=== PATIENT | male | born 1940 | race Caucasian/White ===

== ENCOUNTER → 2017-07-12 | Outpatient (CLI) | payer MEDICARE | END | disposition home or self-care (01) | LOC: SHCH 08:23 | PROVIDERS: ATTEND Internal Medicine Cardiovascular Disease | DX: I82.412 Acute embolism and thrombosis of left femoral vein (principal); Z79.01 Long term (current) use of anticoagulants; Z86.718 Personal history of other venous thrombosis and embolism | CPT/HCPCS: 93970 ==

== ENCOUNTER 2018-03-31 17:25 | Inpatient (IN) | payer MEDICARE ==
[~2018-03-31] VITALS: Ht 180.3 cm; Wt 86.0 kg
[2018-03-31 18:00] LABS: APPEARANCE,URINE CLEAR (CLEAR); BILIRUBIN,URINE NEGATIVE (NEGATIVE); COLOR,URINE YELLOW (YELLOW); GLUCOSE, URINE (UA) NEGATIVE (NEGATIVE); KETONES,URINE NEGATIVE (NEGATIVE); LEUKOCYTE ESTERASE ,URINE NEGATIVE (NEGATIVE); NITRATE,URINE NEGATIVE (NEGATIVE); OCCULT BLOOD,URINE NEGATIVE (NEGATIVE); PH,URINE 5.5 (5.0-8.0); PROTEIN,URINE NEGATIVE (NEGATIVE); UROBILINOGEN,URINE 0.2 mg/dL (0.2-1.0)
[2018-03-31] MEDS ORDERED: ONDANSETRON HCL 4 MG/2 ML VIAL ONE (18:20)
[2018-03-31] MEDS ORDERED: MORPHINE SULFATE 8 MG/ML VIAL ONE (18:21)
[2018-03-31 18:26] LABS: BASOPHILS % (AUTO) 0.3 % (0.0-5.0); EOSINOPHILS % (AUTO) 0.3 % (0.0-8.0); HEMATOCRIT 37.2 % (42-54); MEAN CORPUSCULAR HEMOGLOBIN 30.6 pg (27.0-33.0); MEAN CORPUSCULAR HGB CONC 33.5 g/dL (32.0-36.0); MEAN CORPUSCULAR VOLUME 91.4 fL (79-99); MONOCYTES % (AUTO) 9.8 % (3.0-13.0); NEUTROPHILS % (AUTO) 84.6 % (40.0-77.0); PLATELET COUNT (AUTO) 199 K/uL (130-400); RED BLOOD CELL COUNT(AUTO) 4.07 MIL/uL (4.50-6.20); RED CELL DISTRIBUTION WIDTH 13.7 % (11.0-15.5); WHITE BLOOD COUNT (AUTO) 14.9 K/uL (4.8-10.8)
[2018-03-31 18:39] LABS: CREATININE 1.6 mg/dL (0.5-1.5); POTASSIUM 4.3 mmol/L (3.5-5.1)
[2018-03-31 18:43] LABS: ALBUMIN 3.7 g/dL (3.5-5.0); BILIRUBIN,TOTAL 0.7 mg/dL (0.2-1.0); TOTAL PROTEIN, SERUM 7.7 g/dL (6.0-8.3)
[2018-03-31] MEDS ORDERED: AZITHROMYCIN 500MG+NS 250ML 250 ML IV ONE (19:56)
[2018-03-31] MEDS ORDERED: CEFTRIAXONE SODIUM 1 GM ONE (19:56)
[2018-03-31] MEDS ORDERED: SODIUM CHLORIDE 0.9% 50 ML IV ONE (19:56)
[2018-03-31] MEDS ORDERED: MORPHINE SULFATE 4 MG/1ML SYG ONE (22:40)
[2018-03-31] MEDS ORDERED: MORPHINE SULFATE 4 MG/1ML SYG IM ONE (22:45)
[2018-03-31 23:00] VITALS: BP 163/78
[2018-03-31] MEDS ORDERED: ATOR40TA69 PO (23:06)
[2018-03-31] MEDS ORDERED: LEVO100T12 PO (23:06)
[2018-03-31] MEDS ORDERED: APIX5TAB PO (23:06)
[2018-03-31] MEDS ORDERED: FLUO-126 PO (23:06)
[2018-03-31] MEDS ORDERED: ASPI-555 PO (23:06)
[2018-04-01] MEDS ORDERED: MORPHINE SULFATE 2 MG/ML 1ML SYG IV PRN
[2018-04-01] MEDS ORDERED: ONDANSETRON HCL 4 MG/2 ML VIAL IV PRN
[2018-04-01] MEDS ORDERED: KETOROLAC TROMETHAMINE 15MG/ML ONE (00:16)
[2018-04-01] MEDS: SODIUM CHLORIDE 0.9% 1000ML 1,000 ML IV SCH ×3 (01:23→20:00)
[2018-04-01] MEDS ORDERED: AMLO10TA6 PO (02:22)
[2018-04-01 04:00] VITALS: BP 148/70
[2018-04-01 06:20] LABS: BASOPHILS % (AUTO) 0.2 % (0.0-5.0); EOSINOPHILS % (AUTO) 0.1 % (0.0-8.0); HEMATOCRIT 32.6 % (42-54); LYMPHOCYTES % (AUTO) 6.7 % (21.0-51.0); MEAN CORPUSCULAR HEMOGLOBIN 31.8 pg (27.0-33.0); MEAN CORPUSCULAR HGB CONC 34.8 g/dL (32.0-36.0); MEAN CORPUSCULAR VOLUME 91.5 fL (79-99); MONOCYTES % (AUTO) 9.3 % (3.0-13.0); NEUTROPHILS % (AUTO) 83.7 % (40.0-77.0); PLATELET COUNT (AUTO) 177 K/uL (130-400); RED BLOOD CELL COUNT(AUTO) 3.57 MIL/uL (4.50-6.20); RED CELL DISTRIBUTION WIDTH 13.8 % (11.0-15.5); WHITE BLOOD COUNT (AUTO) 15.4 K/uL (4.8-10.8)
[2018-04-01] MEDS: KETOROLAC TROMETHAMINE 15MG/ML IV PRN ×3 (06:26→20:01)
[2018-04-01 07:12] LABS: BILIRUBIN,TOTAL 0.8 mg/dL (0.2-1.0); CREATININE 1.7 mg/dL (0.5-1.5); POTASSIUM 4.5 mmol/L (3.5-5.1); TOTAL PROTEIN, SERUM 6.6 g/dL (6.0-8.3)
[2018-04-01 07:31] VITALS: BP 127/62
[2018-04-01] MEDS ORDERED: ENOXAPARIN SODIUM 30 MG/0.3 ML SQ SCH (09:00)
[2018-04-01] MEDS: PANTOPRAZOLE SODIUM 40 MG TABLET.DR PO SCH (10:13)
[2018-04-01] MEDS: ACETAMINOPHEN 325 MG TAB PO PRN (10:15)
[2018-04-01 11:00] VITALS: BP 142/67
[2018-04-01 16:00] VITALS: BP 132/61
[2018-04-01 20:00] VITALS: BP 164/72
[2018-04-01] MEDS: APIXABAN 5 MG TABLET PO SCH (20:03)
[2018-04-01] MEDS ORDERED: MORPHINE SULFATE 5 MG/ML VIAL ONE (21:28)
[2018-04-01] MEDS: AZITHROMYCIN 500MG+NS 250ML 250 ML IV SCH ×2 (23:33)
[2018-04-01] MEDS: CEFTRIAXONE SODIUM 1 GM IV SCH ×2 (23:33)
[2018-04-02] VITALS (7 sets, daily range): BP systolic 119–156; BP diastolic 58–67
[2018-04-02] MEDS: SODIUM CHLORIDE 0.9% 1000ML 1,000 ML IV SCH ×3 (04:10→18:58)
[2018-04-02] MEDS: KETOROLAC TROMETHAMINE 15MG/ML IV PRN ×4 (04:30→21:57)
[2018-04-02 04:31] LABS: BASOPHILS % (AUTO) 0.2 % (0.0-5.0); EOSINOPHILS % (AUTO) 1.4 % (0.0-8.0); HEMATOCRIT 35.1 % (42-54); LYMPHOCYTES % (AUTO) 7.9 % (21.0-51.0); MEAN CORPUSCULAR HEMOGLOBIN 30.7 pg (27.0-33.0); MEAN CORPUSCULAR HGB CONC 33.6 g/dL (32.0-36.0); MEAN CORPUSCULAR VOLUME 91.6 fL (79-99); MONOCYTES % (AUTO) 9.6 % (3.0-13.0); NEUTROPHILS % (AUTO) 80.9 % (40.0-77.0); PLATELET COUNT (AUTO) 171 K/uL (130-400); RED BLOOD CELL COUNT(AUTO) 3.83 MIL/uL (4.50-6.20); RED CELL DISTRIBUTION WIDTH 13.8 % (11.0-15.5); WHITE BLOOD COUNT (AUTO) 12.1 K/uL (4.8-10.8)
[2018-04-02 04:46] LABS: CREATININE 1.5 mg/dL (0.5-1.5); POTASSIUM 4.5 mmol/L (3.5-5.1)
[2018-04-02] MEDS ORDERED: MORPHINE SULFATE 8 MG/ML VIAL ONE (06:13)
[2018-04-02] MEDS: APIXABAN 5 MG TABLET PO SCH ×2 (09:00→21:57)
[2018-04-02] MEDS: LEVOTHYROXINE 100 MCG TABLET PO SCH (09:00)
[2018-04-02] MEDS: ATORVASTATIN CALCIUM 40 MG TABLET PO SCH (11:03)
[2018-04-02] MEDS: FLUOXETINE HCL 20 MG CAPSULE PO SCH (11:03)
[2018-04-02] MEDS: AMLODIPINE BESYLATE 5 MG TAB PO SCH (11:03)
[2018-04-02] MEDS: ASPIRIN 81MG TAB.CHEW PO SCH (11:03)
[2018-04-02] MEDS: PANTOPRAZOLE SODIUM 40 MG TABLET.DR PO SCH (11:03)
[2018-04-03] MEDS: AZITHROMYCIN 500MG+NS 250ML 250 ML IV SCH ×2 (00:53→23:42)
[2018-04-03] MEDS: CEFTRIAXONE SODIUM 1 GM IV SCH ×2 (00:53→23:42)
[2018-04-03] MEDS: SODIUM CHLORIDE 0.9% 1000ML 1,000 ML IV SCH ×3 (02:00→22:00)
[2018-04-03 03:25] VITALS: BP 128/60
[2018-04-03 04:31] LABS: BASOPHILS % (AUTO) 0.2 % (0.0-5.0); EOSINOPHILS % (AUTO) 3.7 % (0.0-8.0); HEMATOCRIT 31.6 % (42-54); LYMPHOCYTES % (AUTO) 9.4 % (21.0-51.0); MEAN CORPUSCULAR HEMOGLOBIN 31.2 pg (27.0-33.0); MEAN CORPUSCULAR HGB CONC 34.1 g/dL (32.0-36.0); MEAN CORPUSCULAR VOLUME 91.6 fL (79-99); NEUTROPHILS % (AUTO) 74.7 % (40.0-77.0); PLATELET COUNT (AUTO) 179 K/uL (130-400); RED BLOOD CELL COUNT(AUTO) 3.45 MIL/uL (4.50-6.20); RED CELL DISTRIBUTION WIDTH 13.3 % (11.0-15.5); WHITE BLOOD COUNT (AUTO) 9.2 K/uL (4.8-10.8)
[2018-04-03 04:39] LABS: CREATININE 1.4 mg/dL (0.5-1.5); POTASSIUM 4.1 mmol/L (3.5-5.1)
[2018-04-03 07:42] VITALS: BP 132/60
[2018-04-03] MEDS ORDERED: IOHEXOL-350 75 ML VIAL IV ONE ×2 (08:07→14:49)
[2018-04-03] MEDS: KETOROLAC TROMETHAMINE 15MG/ML IV PRN ×2 (08:19→20:20)
[2018-04-03] MEDS ORDERED: MORPHINE SULFATE 5 MG/ML VIAL ONE ×2 (08:41→15:12)
[2018-04-03] MEDS: MORPHINE SULFATE 4 MG/1ML SYG IV PRN ×2 (08:58→15:15)
[2018-04-03] MEDS: AMLODIPINE BESYLATE 5 MG TAB PO SCH (09:00)
[2018-04-03] MEDS: APIXABAN 5 MG TABLET PO SCH ×2 (09:00→20:20)
[2018-04-03] MEDS: ATORVASTATIN CALCIUM 40 MG TABLET PO SCH (09:00)
[2018-04-03] MEDS: FLUOXETINE HCL 20 MG CAPSULE PO SCH (09:00)
[2018-04-03] MEDS: ASPIRIN 81MG TAB.CHEW PO SCH (09:00)
[2018-04-03] MEDS: LEVOTHYROXINE 100 MCG TABLET PO SCH (09:00)
[2018-04-03] MEDS ORDERED: DIATR MEGLU/DIATRIZOATE SODIUM 30 ML BOTTLE ONE (11:22)
[2018-04-03 11:41] VITALS: BP 129/64
[2018-04-03] MEDS: PANTOPRAZOLE SODIUM 40 MG TABLET.DR PO SCH (13:37)
[2018-04-03 16:00] VITALS: BP 134/64
[2018-04-03 20:04] VITALS: BP 154/61
[2018-04-04 00:04] VITALS: BP 117/54
[2018-04-04 04:04] VITALS: BP 123/63
[2018-04-04 04:31] LABS: BASOPHILS % (AUTO) 0.6 % (0.0-5.0); EOSINOPHILS % (AUTO) 6.1 % (0.0-8.0); HEMATOCRIT 29.2 % (42-54); LYMPHOCYTES % (AUTO) 10.7 % (21.0-51.0); MEAN CORPUSCULAR HEMOGLOBIN 31.6 pg (27.0-33.0); MEAN CORPUSCULAR HGB CONC 34.7 g/dL (32.0-36.0); MEAN CORPUSCULAR VOLUME 91.1 fL (79-99); MONOCYTES % (AUTO) 15.5 % (3.0-13.0); NEUTROPHILS % (AUTO) 67.1 % (40.0-77.0); PLATELET COUNT (AUTO) 209 K/uL (130-400); RED CELL DISTRIBUTION WIDTH 13.4 % (11.0-15.5); WHITE BLOOD COUNT (AUTO) 8.2 K/uL (4.8-10.8)
[2018-04-04 04:37] LABS: CREATININE 1.7 mg/dL (0.5-1.5)
[2018-04-04 08:00] VITALS: BP 144/61
[2018-04-04] MEDS: KETOROLAC TROMETHAMINE 15MG/ML IV PRN ×4 (08:45→23:31)
[2018-04-04] MEDS: ATORVASTATIN CALCIUM 40 MG TABLET PO SCH (08:50)
[2018-04-04] MEDS: FLUOXETINE HCL 20 MG CAPSULE PO SCH (08:50)
[2018-04-04] MEDS: AMLODIPINE BESYLATE 5 MG TAB PO SCH (08:50)
[2018-04-04] MEDS: APIXABAN 5 MG TABLET PO SCH ×2 (08:50→20:51)
[2018-04-04] MEDS: LEVOTHYROXINE 100 MCG TABLET PO SCH (08:50)
[2018-04-04] MEDS: PANTOPRAZOLE SODIUM 40 MG TABLET.DR PO SCH (08:50)
[2018-04-04] MEDS: ASPIRIN 81MG TAB.CHEW PO SCH (08:50)
[2018-04-04] MEDS: SODIUM CHLORIDE 0.9% 1000ML 1,000 ML IV SCH ×2 (08:51→18:00)
[2018-04-04 11:00] VITALS: BP 144/63
[2018-04-04 16:00] VITALS: BP 151/79
[2018-04-04] MEDS: MORPHINE SULFATE 4 MG/1ML SYG IV PRN (17:05)
[2018-04-04] MEDS: CEFEPIME HCL 1 GM VIAL IVP SCH ×2 (17:48→23:48)
[2018-04-04 19:25] VITALS: BP 154/71
[2018-04-04] MEDS: DOXYCYCLINE HYCLATE 100 MG TABLET PO SCH (20:51)
[2018-04-05] VITALS (7 sets, daily range): BP systolic 151–167; BP diastolic 66–80
[2018-04-05] MEDS: SODIUM CHLORIDE 0.9% 1000ML 1,000 ML IV SCH ×3 (04:45→17:49)
[2018-04-05 04:56] LABS: BASOPHILS % (AUTO) 0.8 % (0.0-5.0); EOSINOPHILS % (AUTO) 5.8 % (0.0-8.0); HEMATOCRIT 32.8 % (42-54); MEAN CORPUSCULAR HEMOGLOBIN 31.3 pg (27.0-33.0); MONOCYTES % (AUTO) 12.7 % (3.0-13.0); NEUTROPHILS % (AUTO) 68.7 % (40.0-77.0); PLATELET COUNT (AUTO) 211 K/uL (130-400); RED BLOOD CELL COUNT(AUTO) 3.57 MIL/uL (4.50-6.20); RED CELL DISTRIBUTION WIDTH 13.4 % (11.0-15.5); WHITE BLOOD COUNT (AUTO) 8.2 K/uL (4.8-10.8)
[2018-04-05 04:57] LABS: ABG HCO3 17.7 mmol/L (21.0-28.0); ABG OXYGEN SATURATION 92.5 % (95.0-99.0); ABG PCO2 27 mmHg (35-48)
[2018-04-05 05:11] LABS: INR 1.02 (0.85-1.15); PARTIAL THROMBOPLASTIN TIME 37.3 SEC (26.3-35.5); PROTHROMBIN TIME 10.7 SEC (9.6-11.6)
[2018-04-05 05:12] LABS: CREATININE 1.6 mg/dL (0.5-1.5); PHOSPHORUS 4.6 mg/dL (2.5-4.9)
[2018-04-05 05:30] LABS: CRP QUANTITATIVE 242.3 mg/L (0.00-9.0)
[2018-04-05] MEDS ORDERED: HYDROCORTISONE 1% 28.35 GM CREAM TP PRN (06:30)
[2018-04-05] MEDS: LEVOTHYROXINE 100 MCG TABLET PO SCH ×2 (08:46→09:00)
[2018-04-05] MEDS: ATORVASTATIN CALCIUM 40 MG TABLET PO SCH ×2 (08:46→09:00)
[2018-04-05] MEDS: DOXYCYCLINE HYCLATE 100 MG TABLET PO SCH ×3 (08:46→21:02)
[2018-04-05] MEDS: CEFEPIME HCL 1 GM VIAL IVP SCH ×3 (08:46→23:55)
[2018-04-05] MEDS: FLUOXETINE HCL 20 MG CAPSULE PO SCH ×2 (08:46→09:00)
[2018-04-05] MEDS: PANTOPRAZOLE SODIUM 40 MG TABLET.DR PO SCH ×2 (08:47→09:00)
[2018-04-05] MEDS: APIXABAN 5 MG TABLET PO SCH ×2 (08:47→09:00)
[2018-04-05] MEDS: AMLODIPINE BESYLATE 5 MG TAB PO SCH ×2 (08:47→09:00)
[2018-04-05] MEDS: ASPIRIN 81MG TAB.CHEW PO SCH ×2 (08:47→08:56)
[2018-04-05] MEDS: MORPHINE SULFATE 4 MG/1ML SYG IV PRN (15:43)
[2018-04-05] MEDS: KETOROLAC TROMETHAMINE 15MG/ML IV PRN (18:48)
[2018-04-06 03:35] VITALS: BP 153/73
[2018-04-06 05:05] LABS: BASOPHILS % (AUTO) 0.4 % (0.0-5.0); HEMATOCRIT 29.5 % (42-54); LYMPHOCYTES % (AUTO) 8.5 % (21.0-51.0); MEAN CORPUSCULAR HEMOGLOBIN 30.5 pg (27.0-33.0); MEAN CORPUSCULAR HGB CONC 33.4 g/dL (32.0-36.0); MEAN CORPUSCULAR VOLUME 91.4 fL (79-99); MONOCYTES % (AUTO) 15.6 % (3.0-13.0); NEUTROPHILS % (AUTO) 70.5 % (40.0-77.0); NUCLEATED RED BLOOD CELLS 0.1 % (0.0-0.19); PLATELET COUNT (AUTO) 205 K/uL (130-400); RED BLOOD CELL COUNT(AUTO) 3.22 MIL/uL (4.50-6.20); RED CELL DISTRIBUTION WIDTH 13.7 % (11.0-15.5); WHITE BLOOD COUNT (AUTO) 8.5 K/uL (4.8-10.8)
[2018-04-06 05:20] LABS: BILIRUBIN,TOTAL 0.6 mg/dL (0.2-1.0); CREATININE 1.4 mg/dL (0.5-1.5); MAGNESIUM 1.9 mg/dL (1.80-2.40); POTASSIUM 4.4 mmol/L (3.5-5.1); TOTAL PROTEIN, SERUM 6.1 g/dL (6.0-8.3)
[2018-04-06 05:23] LABS: INR 1.05 (0.85-1.15); PARTIAL THROMBOPLASTIN TIME 35.9 SEC (26.3-35.5)
[2018-04-06] MEDS ORDERED: HYDROCORTISONE 1% 28.35 GM CREAM TP PRN (06:45)
[2018-04-06 07:56] VITALS: BP 159/71
[2018-04-06] MEDS ORDERED: KETOROLAC TROMETHAMINE 15MG/ML ONE (08:49)
[2018-04-06] MEDS: ATORVASTATIN CALCIUM 40 MG TABLET PO SCH (09:00)
[2018-04-06] MEDS: AMLODIPINE BESYLATE 5 MG TAB PO SCH (09:00)
[2018-04-06] MEDS: FLUOXETINE HCL 20 MG CAPSULE PO SCH (09:00)
[2018-04-06] MEDS: LEVOTHYROXINE 100 MCG TABLET PO SCH (09:00)
[2018-04-06] MEDS: ASPIRIN 81MG TAB.CHEW PO SCH (09:00)
[2018-04-06] MEDS: DOXYCYCLINE HYCLATE 100 MG TABLET PO SCH ×2 (09:01→19:52)
[2018-04-06] MEDS: PANTOPRAZOLE SODIUM 40 MG TABLET.DR PO SCH (09:01)
[2018-04-06] MEDS: CEFEPIME HCL 1 GM VIAL IVP SCH ×3 (09:01→23:52)
[2018-04-06] MEDS: KETOROLAC TROMETHAMINE 15MG/ML IV PRN ×3 (09:02→23:47)
[2018-04-06 11:35] VITALS: BP 134/74
[2018-04-06] MEDS ORDERED: LIDOCAINE HCL MPF 1% 5ML VIAL ONE ×2 (14:12→14:18)
[2018-04-06] MEDS: MORPHINE SULFATE 4 MG/1ML SYG IV PRN (14:53)
[2018-04-06 16:25] VITALS: BP 157/78
[2018-04-06 17:53] LABS: TRIGLYCERIDES,BODY FLUID 56 mg/dL
[2018-04-06 17:55] LABS: CHOLESTEROL,BODY FLUID 63 mg/dL
[2018-04-06 19:48] LABS: APPEARANCE BODY FLUID SLIGHTLY CLOUDY (CLEAR); COLOR,BODY FLUID DARK YELLOW (LT YELLOW); SPECIMENTYPE,BODY FLUID PLEURAL; TOTAL VOLUME,BODY FLUID 61 mL
[2018-04-06 19:49] LABS: BODY FLUID RBC 3827 /cu. mm.; BODY FLUID WBC 1517 /cu. mm.
[2018-04-06] MEDS: APIXABAN 5 MG TABLET PO SCH (19:52)
[2018-04-06 19:56] LABS: BF LYMPHOCYTE 8 %; BF MONOCYTE 1 %
[2018-04-06 19:58] VITALS: BP 139/88
[2018-04-07] VITALS (7 sets, daily range): BP systolic 136–156; BP diastolic 57–77
[2018-04-07 04:47] LABS: BASOPHILS % (AUTO) 0.3 % (0.0-5.0); EOSINOPHILS % (AUTO) 6.6 % (0.0-8.0); HEMATOCRIT 25.6 % (42-54); LYMPHOCYTES % (AUTO) 9.9 % (21.0-51.0); MEAN CORPUSCULAR HEMOGLOBIN 31.1 pg (27.0-33.0); MEAN CORPUSCULAR VOLUME 91.7 fL (79-99); MONOCYTES % (AUTO) 14.3 % (3.0-13.0); NEUTROPHILS % (AUTO) 68.9 % (40.0-77.0); PLATELET COUNT (AUTO) 231 K/uL (130-400); RED CELL DISTRIBUTION WIDTH 13.8 % (11.0-15.5); WHITE BLOOD COUNT (AUTO) 8.1 K/uL (4.8-10.8)
[2018-04-07 05:07] LABS: CREATININE 1.6 mg/dL (0.5-1.5); POTASSIUM 4.2 mmol/L (3.5-5.1)
[2018-04-07] MEDS: AMLODIPINE BESYLATE 5 MG TAB PO SCH (08:49)
[2018-04-07] MEDS: CEFEPIME HCL 1 GM VIAL IVP SCH ×2 (08:49→15:38)
[2018-04-07] MEDS: ATORVASTATIN CALCIUM 40 MG TABLET PO SCH (08:49)
[2018-04-07] MEDS: APIXABAN 5 MG TABLET PO SCH ×2 (08:49→20:28)
[2018-04-07] MEDS: PANTOPRAZOLE SODIUM 40 MG TABLET.DR PO SCH (08:49)
[2018-04-07] MEDS: LEVOTHYROXINE 100 MCG TABLET PO SCH (08:50)
[2018-04-07] MEDS: ASPIRIN 81MG TAB.CHEW PO SCH (08:50)
[2018-04-07] MEDS: FLUOXETINE HCL 20 MG CAPSULE PO SCH (08:50)
[2018-04-07] MEDS: DOXYCYCLINE HYCLATE 100 MG TABLET PO SCH ×2 (08:50→20:28)
[2018-04-07] MEDS: ACETAMINOPHEN 325 MG TAB PO PRN (15:38)
[2018-04-07] MEDS: KETOROLAC TROMETHAMINE 15MG/ML IV PRN (20:29)
[2018-04-08] MEDS: CEFEPIME HCL 1 GM VIAL IVP SCH ×3 (00:09→16:14)
[2018-04-08 04:00] VITALS: BP 139/71
[2018-04-08 05:05] LABS: BASOPHILS % (AUTO) 0.4 % (0.0-5.0); EOSINOPHILS % (AUTO) 6.9 % (0.0-8.0); HEMATOCRIT 25.7 % (42-54); LYMPHOCYTES % (AUTO) 12.1 % (21.0-51.0); MEAN CORPUSCULAR HGB CONC 33.8 g/dL (32.0-36.0); MEAN CORPUSCULAR VOLUME 91.7 fL (79-99); MONOCYTES % (AUTO) 12.5 % (3.0-13.0); NEUTROPHILS % (AUTO) 68.1 % (40.0-77.0); PLATELET COUNT (AUTO) 217 K/uL (130-400); RED BLOOD CELL COUNT(AUTO) 2.81 MIL/uL (4.50-6.20); RED CELL DISTRIBUTION WIDTH 13.7 % (11.0-15.5); WHITE BLOOD COUNT (AUTO) 6.2 K/uL (4.8-10.8)
[2018-04-08 05:16] LABS: CREATININE 1.5 mg/dL (0.5-1.5); POTASSIUM 4.4 mmol/L (3.5-5.1)
[2018-04-08 08:10] VITALS: BP 145/79
[2018-04-08] MEDS: PANTOPRAZOLE SODIUM 40 MG TABLET.DR PO SCH (09:00)
[2018-04-08] MEDS: ATORVASTATIN CALCIUM 40 MG TABLET PO SCH (09:41)
[2018-04-08] MEDS: DOXYCYCLINE HYCLATE 100 MG TABLET PO SCH ×2 (09:41→20:37)
[2018-04-08] MEDS: ASPIRIN 81MG TAB.CHEW PO SCH (09:41)
[2018-04-08] MEDS: FLUOXETINE HCL 20 MG CAPSULE PO SCH (09:41)
[2018-04-08] MEDS: APIXABAN 5 MG TABLET PO SCH ×2 (09:41→20:37)
[2018-04-08] MEDS: AMLODIPINE BESYLATE 5 MG TAB PO SCH (09:42)
[2018-04-08] MEDS: LEVOTHYROXINE 100 MCG TABLET PO SCH (09:42)
[2018-04-08 11:32] VITALS: BP 142/64
[2018-04-08 16:38] VITALS: BP 161/72
[2018-04-08 19:58] VITALS: BP 153/65
[2018-04-08] MEDS: METOPROLOL TARTRATE 25 MG TAB PO SCH (20:37)
[2018-04-08 23:39] VITALS: BP 137/63
[2018-04-09] MEDS: CEFEPIME HCL 1 GM VIAL IVP SCH ×3 (01:57→16:27)
[2018-04-09 04:00] VITALS: BP 130/58
[2018-04-09 07:00] VITALS: BP 131/67
[2018-04-09] MEDS: PANTOPRAZOLE SODIUM 40 MG TABLET.DR PO SCH (09:00)
[2018-04-09] MEDS: DOXYCYCLINE HYCLATE 100 MG TABLET PO SCH ×2 (09:01→22:15)
[2018-04-09] MEDS: ASPIRIN 81MG TAB.CHEW PO SCH (09:01)
[2018-04-09] MEDS: AMLODIPINE BESYLATE 5 MG TAB PO SCH (09:01)
[2018-04-09] MEDS: FLUOXETINE HCL 20 MG CAPSULE PO SCH (09:01)
[2018-04-09] MEDS: METOPROLOL TARTRATE 25 MG TAB PO SCH ×2 (09:01→22:16)
[2018-04-09] MEDS: LEVOTHYROXINE 100 MCG TABLET PO SCH (09:02)
[2018-04-09] MEDS: ATORVASTATIN CALCIUM 40 MG TABLET PO SCH (09:11)
[2018-04-09] MEDS: APIXABAN 5 MG TABLET PO SCH ×2 (09:11→22:16)
[2018-04-09 11:52] VITALS: BP 116/58
[2018-04-09 16:00] VITALS: BP 152/67
[2018-04-09 19:20] VITALS: BP 149/66
[2018-04-09 23:30] VITALS: BP 136/65
[2018-04-10] MEDS: CEFEPIME HCL 1 GM VIAL IVP SCH ×4 (00:30→23:56)
[2018-04-10 03:20] VITALS: BP 128/54
[2018-04-10 04:03] LABS: BASOPHILS % (AUTO) 0.4 % (0.0-5.0); EOSINOPHILS % (AUTO) 6.7 % (0.0-8.0); HEMATOCRIT 25.6 % (42-54); LYMPHOCYTES % (AUTO) 11.7 % (21.0-51.0); MEAN CORPUSCULAR HEMOGLOBIN 30.3 pg (27.0-33.0); MEAN CORPUSCULAR HGB CONC 33.3 g/dL (32.0-36.0); MEAN CORPUSCULAR VOLUME 91.2 fL (79-99); MONOCYTES % (AUTO) 12.1 % (3.0-13.0); NEUTROPHILS % (AUTO) 69.1 % (40.0-77.0); PLATELET COUNT (AUTO) 263 K/uL (130-400); RED BLOOD CELL COUNT(AUTO) 2.81 MIL/uL (4.50-6.20); RED CELL DISTRIBUTION WIDTH 13.7 % (11.0-15.5); WHITE BLOOD COUNT (AUTO) 6.6 K/uL (4.8-10.8)
[2018-04-10 04:11] LABS: CREATININE 1.5 mg/dL (0.5-1.5); POTASSIUM 4.1 mmol/L (3.5-5.1)
[2018-04-10 08:00] VITALS: BP 145/69
[2018-04-10] MEDS: APIXABAN 5 MG TABLET PO SCH ×2 (09:00→20:59)
[2018-04-10] MEDS: ATORVASTATIN CALCIUM 40 MG TABLET PO SCH (09:53)
[2018-04-10] MEDS: DOXYCYCLINE HYCLATE 100 MG TABLET PO SCH ×2 (09:53→20:59)
[2018-04-10] MEDS: LEVOTHYROXINE 100 MCG TABLET PO SCH (09:54)
[2018-04-10] MEDS: AMLODIPINE BESYLATE 5 MG TAB PO SCH (09:54)
[2018-04-10] MEDS: FLUOXETINE HCL 20 MG CAPSULE PO SCH (09:54)
[2018-04-10] MEDS: ASPIRIN 81MG TAB.CHEW PO SCH (09:54)
[2018-04-10] MEDS: PANTOPRAZOLE SODIUM 40 MG TABLET.DR PO SCH (09:54)
[2018-04-10] MEDS: METOPROLOL TARTRATE 25 MG TAB PO SCH ×2 (09:54→21:00)
[2018-04-10 11:00] VITALS: BP 122/54
[2018-04-10 16:00] VITALS: BP 136/63
[2018-04-10 20:03] VITALS: BP 139/67
[2018-04-10 23:46] VITALS: BP 126/57
[2018-04-11 04:23] VITALS: BP 129/58
[2018-04-11] MEDS: APIXABAN 5 MG TABLET PO SCH ×2 (09:00→20:09)
[2018-04-11] MEDS: LEVOTHYROXINE 100 MCG TABLET PO SCH (09:00)
[2018-04-11 09:22] VITALS: BP 137/66
[2018-04-11] MEDS: DOXYCYCLINE HYCLATE 100 MG TABLET PO SCH ×2 (09:33→20:08)
[2018-04-11] MEDS: AMLODIPINE BESYLATE 5 MG TAB PO SCH (09:33)
[2018-04-11] MEDS: ASPIRIN 81MG TAB.CHEW PO SCH (09:34)
[2018-04-11] MEDS: CEFEPIME HCL 1 GM VIAL IVP SCH ×2 (09:34→18:11)
[2018-04-11] MEDS: FLUOXETINE HCL 20 MG CAPSULE PO SCH (09:34)
[2018-04-11] MEDS: PANTOPRAZOLE SODIUM 40 MG TABLET.DR PO SCH (09:34)
[2018-04-11] MEDS: ATORVASTATIN CALCIUM 40 MG TABLET PO SCH (09:34)
[2018-04-11] MEDS: METOPROLOL TARTRATE 25 MG TAB PO SCH ×2 (09:37→20:09)
[2018-04-11 12:19] VITALS: BP 141/63
[2018-04-11 16:00] VITALS: BP 139/58
[2018-04-11 20:33] VITALS: BP 137/59
[2018-04-11 23:53] VITALS: BP 124/61
[2018-04-12] MEDS: CEFEPIME HCL 1 GM VIAL IVP SCH ×4 (00:13→23:55)
[2018-04-12 04:32] VITALS: BP 128/63
[2018-04-12 04:49] LABS: BASOPHILS % (AUTO) 0.3 % (0.0-5.0); EOSINOPHILS % (AUTO) 5.4 % (0.0-8.0); HEMATOCRIT 26.7 % (42-54); LYMPHOCYTES % (AUTO) 11.4 % (21.0-51.0); MEAN CORPUSCULAR HEMOGLOBIN 30.3 pg (27.0-33.0); MEAN CORPUSCULAR HGB CONC 33.3 g/dL (32.0-36.0); MEAN CORPUSCULAR VOLUME 90.9 fL (79-99); MONOCYTES % (AUTO) 11.3 % (3.0-13.0); NEUTROPHILS % (AUTO) 71.6 % (40.0-77.0); NUCLEATED RED BLOOD CELLS 0.1 % (0.0-0.19); PLATELET COUNT (AUTO) 327 K/uL (130-400); RED BLOOD CELL COUNT(AUTO) 2.94 MIL/uL (4.50-6.20); RED CELL DISTRIBUTION WIDTH 13.7 % (11.0-15.5); WHITE BLOOD COUNT (AUTO) 8.5 K/uL (4.8-10.8)
[2018-04-12 05:01] LABS: CREATININE 1.5 mg/dL (0.5-1.5); POTASSIUM 4.4 mmol/L (3.5-5.1)
[2018-04-12 08:00] VITALS: BP 124/59
[2018-04-12] MEDS: METOPROLOL TARTRATE 25 MG TAB PO SCH ×2 (08:36→21:21)
[2018-04-12] MEDS: ASPIRIN 81MG TAB.CHEW PO SCH (08:37)
[2018-04-12] MEDS: FLUOXETINE HCL 20 MG CAPSULE PO SCH (08:37)
[2018-04-12] MEDS: DOXYCYCLINE HYCLATE 100 MG TABLET PO SCH ×2 (08:37→21:21)
[2018-04-12] MEDS: PANTOPRAZOLE SODIUM 40 MG TABLET.DR PO SCH (08:37)
[2018-04-12] MEDS: ATORVASTATIN CALCIUM 40 MG TABLET PO SCH (08:38)
[2018-04-12] MEDS: AMLODIPINE BESYLATE 5 MG TAB PO SCH (08:38)
[2018-04-12] MEDS: LEVOTHYROXINE 100 MCG TABLET PO SCH (08:39)
[2018-04-12 11:00] VITALS: BP 124/54
[2018-04-12 16:00] VITALS: BP 158/68
[2018-04-12 20:04] VITALS: BP 129/61
[2018-04-13] VITALS (19 sets, daily range): BP systolic 93–137; BP diastolic 52–68
[2018-04-13 04:29] LABS: BASOPHILS % (AUTO) 0.4 % (0.0-5.0); EOSINOPHILS % (AUTO) 6.5 % (0.0-8.0); HEMATOCRIT 26.3 % (42-54); LYMPHOCYTES % (AUTO) 11.9 % (21.0-51.0); MEAN CORPUSCULAR HEMOGLOBIN 31.1 pg (27.0-33.0); MEAN CORPUSCULAR HGB CONC 34.2 g/dL (32.0-36.0); MEAN CORPUSCULAR VOLUME 90.7 fL (79-99); MONOCYTES % (AUTO) 10.8 % (3.0-13.0); NEUTROPHILS % (AUTO) 70.4 % (40.0-77.0); PLATELET COUNT (AUTO) 344 K/uL (130-400); RED CELL DISTRIBUTION WIDTH 13.4 % (11.0-15.5); WHITE BLOOD COUNT (AUTO) 7.7 K/uL (4.8-10.8)
[2018-04-13 04:44] LABS: INR 1.1 (0.85-1.15); PROTHROMBIN TIME 11.5 SEC (9.6-11.6)
[2018-04-13 04:51] LABS: CREATININE 1.5 mg/dL (0.5-1.5); POTASSIUM 4.1 mmol/L (3.5-5.1)
[2018-04-13] MEDS: CEFEPIME HCL 1 GM VIAL IVP SCH (08:18)
[2018-04-13] MEDS: ATORVASTATIN CALCIUM 40 MG TABLET PO SCH (09:00)
[2018-04-13] MEDS: PANTOPRAZOLE SODIUM 40 MG TABLET.DR PO SCH (09:00)
[2018-04-13] MEDS: LEVOTHYROXINE 100 MCG TABLET PO SCH (09:00)
[2018-04-13] MEDS: DOXYCYCLINE HYCLATE 100 MG TABLET PO SCH (09:00)
[2018-04-13] MEDS: ASPIRIN 81MG TAB.CHEW PO SCH (09:00)
[2018-04-13] MEDS: AMLODIPINE BESYLATE 5 MG TAB PO SCH (09:00)
[2018-04-13] MEDS: FLUOXETINE HCL 20 MG CAPSULE PO SCH (09:00)
[2018-04-13] MEDS: METOPROLOL TARTRATE 25 MG TAB PO SCH (09:44)
[2018-04-13] MEDS ORDERED: PROPOFOL 10 MG/ML 20ML VIAL IV ONE ×3 (13:22→13:34)
[2018-04-13] MEDS ORDERED: GLYCOPYRROLATE 0.2 MG/ML 5 ML VIAL ONE (13:46)
== END 2018-04-13 17:30 | disposition home or self-care (01) | DRG 853 ==
LOC: EDH 17:25 → EDHIP 20:50 → 4CH 21:50 → 4BH 04-03 17:35
PROVIDERS: ADMIT Hospitalist; ATTEND Hospitalist
PROC: 0W9B3ZZ Drainage of Left Pleural Cavity, Percutaneous Approach (ICD-10-PCS; principal; 2018-04-06)
PROC: 0BBG8ZX Excision of Left Upper Lung Lobe, Via Natural or Artificial Opening Endoscopic, Diagnostic (ICD-10-PCS; 2018-04-13)
PROC: 0B9G8ZX Drainage of Left Upper Lung Lobe, Via Natural or Artificial Opening Endoscopic, Diagnostic (ICD-10-PCS; 2018-04-13)
PROC: 0BD88ZX Extraction of Left Upper Lobe Bronchus, Via Natural or Artificial Opening Endoscopic, Diagnostic (ICD-10-PCS; 2018-04-13)
DX: A41.9 Sepsis, unspecified organism (principal); J18.1 Lobar pneumonia, unspecified organism; J96.01 Acute respiratory failure with hypoxia; J98.11 Atelectasis; J90 Pleural effusion, not elsewhere classified; N20.0 Calculus of kidney; K57.90 Diverticulosis of intestine, part unspecified, without perforation or abscess without bleeding; K42.9 Umbilical hernia without obstruction or gangrene; E03.9 Hypothyroidism, unspecified; E78.5 Hyperlipidemia, unspecified; I10 Essential (primary) hypertension; I49.8 Other specified cardiac arrhythmias; J98.4 Other disorders of lung; K80.20 Calculus of gallbladder without cholecystitis without obstruction; L74.0 Miliaria rubra; N13.9 Obstructive and reflux uropathy, unspecified; R07.81 Pleurodynia; X50.0XXA Overexertion from strenuous movement or load, initial encounter; Z79.01 Long term (current) use of anticoagulants; Z86.718 Personal history of other venous thrombosis and embolism; Z87.442 Personal history of urinary calculi; Z80.9 Family history of malignant neoplasm, unspecified; Z83.3 Family history of diabetes mellitus; Z82.49 Family history of ischemic heart disease and other diseases of the circulatory system
CPT/HCPCS: 36415; 36600; 71045; 71250; 72070; 72100; 74018; 74176; 74178; 74400; 76770; 80048; 80053; 81003; 82150; 82465; 82550; 82803; 82945; 83605; 83615; 83690; 83735; 83986; 84100; 84157; 84478; 84484; 85025; 85610; 85730; 86140; 87040; 87071; 87088; 87101; 87103; 87116; 87205; 87206; 88104; 88108; 88305; 88312; 89051; 93005; 93306; 94760; 97039; A4218; C1729; J0456; J0692; J0696; J1650; J1885; J2270; J2405; J2704; J3490; J7030; Q9963; Q9967

== ENCOUNTER → 2018-05-23 | Outpatient (CLI) | payer MEDICARE ==
[~2018-05-23] MED LIST: AMLO10TA7 PO; APIX5TAB PO; ASPI-555 PO; ATOR40TA69 PO; FLUO-126 PO; LEVO100T12 PO
== END | disposition home or self-care (01) ==
LOC: SHCH 11:18
PROVIDERS: ATTEND Internal Medicine Cardiovascular Disease
DX: I87.2 Venous insufficiency (chronic) (peripheral) (principal)
CPT/HCPCS: 93970

== ENCOUNTER → 2018-08-26 | Outpatient (CLI) | payer MEDICARE | END | disposition home or self-care (01) | LOC: SHCH 08:45 | PROVIDERS: ATTEND Internal Medicine Cardiovascular Disease | DX: Z09 Encounter for follow-up examination after completed treatment for conditions other than malignant neoplasm (principal) | CPT/HCPCS: 93971 ==

== ENCOUNTER → 2018-09-25 | Outpatient (CLI) | payer MEDICARE ==
[2018-09-25 16:41] LABS: CREATININE 1.4 mg/dL (0.5-1.5)
== END | disposition home or self-care (01) ==
LOC: LAB 15:37
PROVIDERS: ATTEND Internal Medicine
DX: R91.8 Other nonspecific abnormal finding of lung field (principal)
CPT/HCPCS: 36415; 82565; 84520

== ENCOUNTER → 2018-09-30 | Outpatient (CLI) | payer MEDICARE ==
[~2018-09-30] MED LIST changes: +IOHEXOL-350 50ML VIAL IV ONE
== END | disposition home or self-care (01) ==
LOC: RAH 13:51
PROVIDERS: ATTEND Internal Medicine
DX: J98.11 Atelectasis (principal)
CPT/HCPCS: 71260; Q9967

== ENCOUNTER 2019-07-13 10:31 | Emergency (ER) | payer MEDICARE ==
[~2019-07-13 10:31] MED LIST changes: -FLUO-126 PO; +FLUO20CA35 PO; -IOHEXOL-350 50ML VIAL IV ONE
[2019-07-13 11:23] LABS: CREATININE 1.6 mg/dL (0.5-1.5); POTASSIUM 4.1 mmol/L (3.5-5.1)
[2019-07-13 11:28] LABS: ALBUMIN 3.7 g/dL (3.5-5.0); BILIRUBIN,TOTAL 0.6 mg/dL (0.2-1.0); TOTAL PROTEIN, SERUM 7.6 g/dL (6.0-8.3)
[2019-07-13 11:32] LABS: BASOPHILS % (AUTO) 0.7 % (0.0-5.0); EOSINOPHILS % (AUTO) 4.6 % (0.0-8.0); HEMATOCRIT 38.4 % (42-54); LYMPHOCYTES % (AUTO) 23.7 % (21.0-51.0); MEAN CORPUSCULAR HGB CONC 33.6 g/dL (32.0-36.0); MEAN CORPUSCULAR VOLUME 92.3 fL (79-99); MONOCYTES % (AUTO) 10.4 % (3.0-13.0); NEUTROPHILS % (AUTO) 60.3 % (40.0-77.0); PLATELET COUNT (AUTO) 208 K/uL (130-400); RED BLOOD CELL COUNT(AUTO) 4.16 MIL/uL (4.50-6.20); RED CELL DISTRIBUTION WIDTH 12.6 % (11.0-15.5); WHITE BLOOD COUNT (AUTO) 6.1 K/uL (4.8-10.8)
[2019-07-13 12:04] LABS: B-TYPE NATRIURETIC PEPTIDE 60 pg/mL (0-100)
[2019-07-13 12:10] LABS: APPEARANCE,URINE Clear (CLEAR); BILIRUBIN,URINE Negative (NEGATIVE); COLOR,URINE Yellow (YELLOW); GLUCOSE, URINE (UA) Negative (NEGATIVE); KETONES,URINE Negative (NEGATIVE); LEUKOCYTE ESTERASE ,URINE Negative (NEGATIVE); NITRATE,URINE Negative (NEGATIVE); OCCULT BLOOD,URINE Negative (NEGATIVE); PROTEIN,URINE Negative (NEGATIVE); UROBILINOGEN,URINE 0.2 mg/dL (0.2-1.0)
[2019-07-13 13:57] LABS: INR 1.02 (0.85-1.15); PARTIAL THROMBOPLASTIN TIME 27.6 SEC (26.3-35.5); PROTHROMBIN TIME 10.7 SEC (9.6-11.6)
== END 2019-07-13 18:36 | disposition home or self-care (01) ==
LOC: EDH 10:31
DX: M54.6 Pain in thoracic spine (principal); R10.9 Unspecified abdominal pain; E78.5 Hyperlipidemia, unspecified; E07.9 Disorder of thyroid, unspecified; Z86.718 Personal history of other venous thrombosis and embolism; Z91.030 Bee allergy status
CPT/HCPCS: 36415; 71046; 74176; 78582; 80053; 81003; 82550; 83690; 83880; 84484; 85025; 85378; 85610; 85730; 93005; 99285; A9540; A9558

== ENCOUNTER → 2024-02-23 | Outpatient (CLI) | payer MEDICARE ==
[~2024-02-23] MED LIST changes: +AMLO-258 PO; -AMLO10TA7 PO; -ASPI-555 PO; +ASPI-556 PO; +FLUO-418 PO; -FLUO20CA35 PO
== END | disposition home or self-care (01) ==
LOC: SHCH 14:24
PROVIDERS: ATTEND Internal Medicine Cardiovascular Disease
DX: R07.9 Chest pain, unspecified (principal); R06.09 Other forms of dyspnea
CPT/HCPCS: 93306

== ENCOUNTER → 2024-05-20 | Outpatient (CLI) | payer MEDICARE ==
[2024-05-20 12:24] LABS: CREATININE 1.5 mg/dL (0.5-1.3); POTASSIUM 4.9 mmol/L (3.5-5.1)
== END | disposition home or self-care (01) ==
LOC: LAB 10:12
PROVIDERS: ATTEND Internal Medicine Cardiovascular Disease
DX: I10 Essential (primary) hypertension (principal); R94.39 Abnormal result of other cardiovascular function study
CPT/HCPCS: 36415; 80048

== ENCOUNTER → 2024-05-27 | Outpatient (CLI) | payer MEDICARE ==
[~2024-05-27] MED LIST changes: +IOHEXOL 350 MG/ML 100ML INFUS..BTL IV ONE; +metoPROLOL tartRATE 1 MG/ML 5ML VIAL IV ONE
--- NOTE | 2024-05-27 12:34 | HMCIMG ---
CT CARDIAC ANGIO W/CONT. CCTA REASON: Venous insufficiency (chronic) (peripheral) COMPARISON: None TECHNIQUE: Images are obtained through the heart in the axial plane before and during bolus IV contrast infusion, 100 cc Omnipaque 350. 2-D and 3-D multiplanar reconstruction images were then performed. The injection had to be repeated once due to motion artifact on the first sequence, total contrast volume was 200 cc. FINDINGS: This dictation is for the noncardiac findings only. Cardiac and coronary artery findings are reported separately. Visualized portions of the lungs are clear. There is normal-appearing pulmonary interstitium. There is no hilar or mediastinal lymphadenopathy. Chest wall structures appear unremarkable. IMPRESSION: 1. Unremarkable noncardiac portions of CT cardiac angiography.
== END | disposition home or self-care (01) ==
LOC: RAH 08:39
PROVIDERS: ATTEND Internal Medicine Cardiovascular Disease
DX: I87.2 Venous insufficiency (chronic) (peripheral) (principal)
CPT/HCPCS: 75574; J3490; Q9967

== ENCOUNTER → 2024-09-25 | Outpatient (CLI) | payer MEDICARE ==
[~2024-09-25] MED LIST changes: -IOHEXOL 350 MG/ML 100ML INFUS..BTL IV ONE; -metoPROLOL tartRATE 1 MG/ML 5ML VIAL IV ONE
== END | disposition home or self-care (01) ==
LOC: WHH 09:37
PROVIDERS: ATTEND Family Medicine
DX: T81.31XA Disruption of external operation (surgical) wound, not elsewhere classified, initial encounter (principal); S41.001A Unspecified open wound of right shoulder, initial encounter; I70.203 Unspecified atherosclerosis of native arteries of extremities, bilateral legs; X58.XXXA Exposure to other specified factors, initial encounter; Y83.8 Other surgical procedures as the cause of abnormal reaction of the patient, or of later complication, without mention of misadventure at the time of the procedure; Y92.238 Other place in hospital as the place of occurrence of the external cause; Y93.89 Activity, other specified; Y92.89 Other specified places as the place of occurrence of the external cause; Y99.8 Other external cause status
CPT/HCPCS: G0463; A4450

== ENCOUNTER → 2024-10-02 | Outpatient (CLI) | payer MEDICARE | END | disposition home or self-care (01) | LOC: WHH 09:13 | PROVIDERS: ATTEND Family Medicine | DX: T81.31XD Disruption of external operation (surgical) wound, not elsewhere classified, subsequent encounter (principal); S41.001D Unspecified open wound of right shoulder, subsequent encounter; I70.203 Unspecified atherosclerosis of native arteries of extremities, bilateral legs; X58.XXXD Exposure to other specified factors, subsequent encounter; Y83.8 Other surgical procedures as the cause of abnormal reaction of the patient, or of later complication, without mention of misadventure at the time of the procedure | CPT/HCPCS: G0463 ==

== ENCOUNTER → 2024-10-09 | Outpatient (CLI) | payer MEDICARE | END | disposition home or self-care (01) | LOC: WHH 10:04 | PROVIDERS: ATTEND Family Medicine | DX: T81.31XD Disruption of external operation (surgical) wound, not elsewhere classified, subsequent encounter (principal); S41.001D Unspecified open wound of right shoulder, subsequent encounter; I70.203 Unspecified atherosclerosis of native arteries of extremities, bilateral legs; X58.XXXD Exposure to other specified factors, subsequent encounter; Y83.8 Other surgical procedures as the cause of abnormal reaction of the patient, or of later complication, without mention of misadventure at the time of the procedure | CPT/HCPCS: G0463 ==

== ENCOUNTER → 2024-10-28 | Outpatient (CLI) | payer MEDICARE | END | disposition home or self-care (01) | LOC: WHH 08:13 | PROVIDERS: ATTEND Family Medicine | DX: T81.31XD Disruption of external operation (surgical) wound, not elsewhere classified, subsequent encounter (principal); S41.001D Unspecified open wound of right shoulder, subsequent encounter; I70.203 Unspecified atherosclerosis of native arteries of extremities, bilateral legs; X58.XXXD Exposure to other specified factors, subsequent encounter; Y83.8 Other surgical procedures as the cause of abnormal reaction of the patient, or of later complication, without mention of misadventure at the time of the procedure | CPT/HCPCS: 17250; A6212 ==

== ENCOUNTER → 2024-11-04 | Outpatient (CLI) | payer MEDICARE ==
[~2024-11-04] MED LIST changes: +LIDOCAINE HCL 4% LTA SOL 4 ML VIAL TP ONE
== END | disposition home or self-care (01) ==
LOC: WHH 08:39
PROVIDERS: ATTEND Family Medicine
DX: T81.31XD Disruption of external operation (surgical) wound, not elsewhere classified, subsequent encounter (principal); S41.001D Unspecified open wound of right shoulder, subsequent encounter; I70.203 Unspecified atherosclerosis of native arteries of extremities, bilateral legs; X58.XXXD Exposure to other specified factors, subsequent encounter; Y83.8 Other surgical procedures as the cause of abnormal reaction of the patient, or of later complication, without mention of misadventure at the time of the procedure
CPT/HCPCS: 11042; A6212

== ENCOUNTER → 2024-11-11 | Outpatient (CLI) | payer MEDICARE ==
[~2024-11-11] MED LIST changes: -LIDOCAINE HCL 4% LTA SOL 4 ML VIAL TP ONE
== END | disposition home or self-care (01) ==
LOC: WHH 08:12
PROVIDERS: ATTEND Family Medicine
DX: T81.31XD Disruption of external operation (surgical) wound, not elsewhere classified, subsequent encounter (principal); S41.001D Unspecified open wound of right shoulder, subsequent encounter; I70.203 Unspecified atherosclerosis of native arteries of extremities, bilateral legs; X58.XXXD Exposure to other specified factors, subsequent encounter; Y83.8 Other surgical procedures as the cause of abnormal reaction of the patient, or of later complication, without mention of misadventure at the time of the procedure
CPT/HCPCS: G0463

== ENCOUNTER → 2025-02-11 | Outpatient (CLI) | payer MEDICARE ==
--- NOTE | 2025-02-12 07:06 | HMCIMG ---
EXAMINATION: ULTRASOUND OF THE RETROPERITONEUM. CLINICAL HISTORY: Acute renal failure. COMPARISON: Ultrasound of the retroperitoneum dated 04/01/2018. TECHNIQUE: Real-time grayscale ultrasound images of the kidneys. FINDINGS: The kidneys are normal in caliber, the right kidney measures 10.0 x 5.2 x 4.5 cm and the left kidney measures 10.1 x 5.0 x 4.9 cm in its craniocaudal, AP, and transverse dimensions respectively. There is normal renal cortical thickness, and cortical echogenicity. There is no renal calculus or hydronephrosis. There is a simple cortical cyst that measures 1.6 x 0.9 x 1.3 cm in the left renal upper pole. The urinary bladder is minimally distended with normal wall thickness. There are no calculi in the urinary bladder. IMPRESSION: Left renal simple cortical cyst. /[place]
== END | disposition home or self-care (01) ==
LOC: RAH 13:16
PROVIDERS: ATTEND Internal Medicine
DX: N28.1 Cyst of kidney, acquired (principal); N18.32 Chronic kidney disease, stage 3b; N17.9 Acute kidney failure, unspecified
CPT/HCPCS: 76770